=== PATIENT | female | born 1965 | race Caucasian/White ===

== ENCOUNTER → 2017-10-16 | Outpatient (CLI) | payer OTHER | LOC: M RAD 08:34 | DX: S92.344D Nondisplaced fracture of fourth metatarsal bone, right foot, subsequent encounter for fracture with routine healing (principal); X58.XXXD Exposure to other specified factors, subsequent encounter | CPT/HCPCS: 78315 ==

== ENCOUNTER → 2017-12-29 | Outpatient (CLI) | payer OTHER ==
[2017-12-29 18:22] LABS: ESTIMATED AVERAGE GLUCOSE 103 MG/DL (60-110); HEMOGLOBIN A1c 5.2 %
[2017-12-29 18:35] LABS: BASO % 0.6 % (0.0-1.0); EOS # 0.1 10^3/uL (0.0-0.50); EOS % 2.3 % (0.0-3.0); HEMATOCRIT 41.4 % (36.0-47.0); HEMOGLOBIN 13.4 g/dl (12.0-15.5); IMMATURE GRANULOCYTE % 0.4 % (0-3.0); LYMPH # 2.2 10^3/uL (1.5-4.5); LYMPH % 42.2 % (24.0-44.0); MEAN CORPUSCULAR HEMOGLOBIN 28.9 pg (27.0-33.0); MEAN CORPUSCULAR HGB CONC 32.4 g/dl (32.0-36.5); MEAN CORPUSCULAR VOLUME 89.2 fl (80.0-96.0); MONO # 0.3 10^3/uL (0.0-0.8); MONO % 6.6 % (0.0-5.0); NEUTROPHILS # 2.5 10^3/uL (1.8-7.7); NEUTROPHILS % 47.9 % (36.0-66.0); PLATELET COUNT, AUTOMATED 306 10^3/uL (150-450); RED BLOOD COUNT 4.64 10^6/uL (4.00-5.40); RED CELL DISTRIBUTION WIDTH 12.8 % (11.5-14.5); WHITE BLOOD COUNT 5.2 10^3/uL (4.0-10.0)
[2017-12-29 19:01] LABS: TOTAL 25(OH) VITAMIN D 24.2 NG/ML (30.0-100.0)
[2017-12-29 19:02] LABS: TOTAL T3 90.8 NG/DL (60.0-181.0)
[2017-12-29 19:03] LABS: ALBUMIN/GLOBULIN RATIO 1.08 (1.00-1.93); ALKALINE PHOSPHATASE 56 U/L (45-117); ALT/SGPT 22 U/L (12-78); ANION GAP 6 MEQ/L (8-16); AST/SGOT 16 U/L (7-37); BILIRUBIN,TOTAL 0.2 MG/DL (0.2-1.0); BLOOD UREA NITROGEN 10 MG/DL (7-18); CALCIUM LEVEL 8.5 MG/DL (8.5-10.1); CARBON DIOXIDE LEVEL 30 MEQ/L (21-32); CHLORIDE LEVEL 107 MEQ/L (98-107); CHOLESTEROL LEVEL 232 MG/DL (<200); CHOLESTEROL RISK RATIO 4.549 (<5); FREE T4 1.08 NG/DL (0.76-1.46); GLOMERULAR FILTRATION RATE > 60.0 (>51); GLUCOSE, FASTING 73 MG/DL (70-100); HDL CHOLESTEROL 51 MG/DL (>40); LDL CHOLESTEROL 147.6 MG/DL (<100); NON-HDL-C 181 MG/DL; POTASSIUM SERUM 4.3 MEQ/L (3.5-5.1); SODIUM LEVEL 143 MEQ/L (136-145); TOTAL PROTEIN 7.7 GM/DL (6.4-8.2); TRIGLYCERIDES LEVEL 167 MG/DL (<150)
[2017-12-31 08:06] LABS: LDL DIRECT 162 mg/dL (0-99)
== END ==
LOC: M LAB 16:29
DX: R63.5 Abnormal weight gain (principal)

== ENCOUNTER → 2018-02-08 | Outpatient (REF) | payer OTHER | LOC: M LAB REF 19:45 | DX: J02.9 Acute pharyngitis, unspecified (principal) ==

== ENCOUNTER → 2018-02-17 | Outpatient (CLI) | payer OTHER ==
[2018-02-17 15:39] LABS: BASO # 0.1 10^3/uL (0.0-0.2); BASO % 0.6 % (0.0-1.0); EOS # 0.3 10^3/uL (0.0-0.50); EOS % 2.6 % (0.0-3.0); HEMATOCRIT 41.7 % (36.0-47.0); HEMOGLOBIN 13.4 g/dl (12.0-15.5); IMMATURE GRANULOCYTE % 0.9 % (0-3.0); LYMPH # 3.9 10^3/uL (1.5-4.5); LYMPH % 39.3 % (24.0-44.0); MEAN CORPUSCULAR HEMOGLOBIN 28.9 pg (27.0-33.0); MEAN CORPUSCULAR HGB CONC 32.1 g/dl (32.0-36.5); MEAN CORPUSCULAR VOLUME 90.1 fl (80.0-96.0); MONO # 0.6 10^3/uL (0.0-0.8); MONO % 5.5 % (0.0-5.0); NEUTROPHILS # 5.1 10^3/uL (1.8-7.7); NEUTROPHILS % 51.1 % (36.0-66.0); PLATELET COUNT, AUTOMATED 460 10^3/uL (150-450); RED BLOOD COUNT 4.63 10^6/uL (4.00-5.40); RED CELL DISTRIBUTION WIDTH 13.4 % (11.5-14.5)
[2018-02-17 15:51] LABS: ALBUMIN 3.7 GM/DL (3.2-5.2); ALBUMIN/GLOBULIN RATIO 1.09 (1.00-1.93); ALKALINE PHOSPHATASE 63 U/L (45-117); ALT/SGPT 33 U/L (12-78); ANION GAP 7 MEQ/L (8-16); AST/SGOT 16 U/L (7-37); BILIRUBIN,TOTAL 0.3 MG/DL (0.2-1.0); BLOOD UREA NITROGEN 16 MG/DL (7-18); CALCIUM LEVEL 8.9 MG/DL (8.5-10.1); CARBON DIOXIDE LEVEL 32 MEQ/L (21-32); CHLORIDE LEVEL 103 MEQ/L (98-107); CREATININE FOR GFR 0.92 MG/DL (0.55-1.30); GLOMERULAR FILTRATION RATE > 60.0 (>51); GLUCOSE, FASTING 76 MG/DL (70-100); POTASSIUM SERUM 4.9 MEQ/L (3.5-5.1); SODIUM LEVEL 142 MEQ/L (136-145); TOTAL PROTEIN 7.1 GM/DL (6.4-8.2)
== END ==
LOC: M WUC 12:19
DX: R05 Cough (principal)

== ENCOUNTER 2018-07-09 15:16 | Emergency (ER) | payer OTHER ==
[2018-07-09 16:31] LABS: BASO % 0.7 % (0.0-1.0); EOS # 0.1 10^3/uL (0.0-0.50); EOS % 1.9 % (0.0-3.0); HEMATOCRIT 40.9 % (36.0-47.0); HEMOGLOBIN 13.1 g/dl (12.0-15.5); IMMATURE GRANULOCYTE % 0.2 % (0-3.0); LYMPH # 2.4 10^3/uL (1.5-4.5); LYMPH % 40.8 % (24.0-44.0); MEAN CORPUSCULAR HEMOGLOBIN 29.2 pg (27.0-33.0); MEAN CORPUSCULAR VOLUME 91.1 fl (80.0-96.0); MONO # 0.4 10^3/uL (0.0-0.8); MONO % 5.9 % (0.0-5.0); NEUTROPHILS % 50.5 % (36.0-66.0); PLATELET COUNT, AUTOMATED 329 10^3/uL (150-450); RED BLOOD COUNT 4.49 10^6/uL (4.00-5.40); RED CELL DISTRIBUTION WIDTH 12.8 % (11.5-14.5); WHITE BLOOD COUNT 5.9 10^3/uL (4.0-10.0)
[2018-07-09 16:33] LABS: KETONE, URINE AUTO RFX NEGATIVE (NEGATIVE); LEUKOCYTE ESTERASE UR AUTO RFX NEGATIVE (NEGATIVE); NITRITE, URINE AUTO RFX NEGATIVE (NEGATIVE); RBC, URINE AUTO RFX 0 /HPF (0-3); SPECIFIC GRAVITY UR AUTO RFX 1.005 (1.002-1.035); SQUAM EPITHELIAL CELL UR AURFX 0 /HPF (0-6); WBC, URINE AUTO RFX 0 /HPF (0-3)
[2018-07-09 16:52] LABS: ANION GAP 6 MEQ/L (8-16); BLOOD UREA NITROGEN 14 MG/DL (7-18); CALCIUM LEVEL 8.7 MG/DL (8.5-10.1); CARBON DIOXIDE LEVEL 28 MEQ/L (21-32); CHLORIDE LEVEL 106 MEQ/L (98-107); CREATININE FOR GFR 0.81 MG/DL (0.55-1.30); GLOMERULAR FILTRATION RATE > 60.0 (>51); GLUCOSE, FASTING 88 MG/DL (70-100); SODIUM LEVEL 140 MEQ/L (136-145)
[2018-07-09] MEDS: NS 1,000 ML IV (18:06)
[2018-07-09] MEDS: SUCRALFATE 1 GM TAB PO (18:06)
[2018-07-09] MEDS: GI COCKTAIL 50ML BTL(HYOSCYAMINE/MAALOX/LIDOCAINE VISCOUS)(1:3:1) PO (18:06)
[2018-07-09] MEDS: PANTOPRAZOLE 40MG INJ (PROTONIX) (C9113) IV (18:06)
[2018-07-09 20:33] LABS: CPK CREATINE PHOSPHOKINASE 143 U/L (26-192); MB/CK RELATIVE INDEX 1.75 (< OR =4); TROPONIN I < 0.02 NG/ML (< 0.10)
== END 2018-07-09 18:38 | disposition home or self-care (01) ==
LOC: M ED 15:16
DX: K29.00 Acute gastritis without bleeding (principal)
CPT/HCPCS: C9113

== ENCOUNTER → 2018-07-20 | Outpatient (REF) | payer OTHER ==
[2018-07-21 07:46] LABS: CONTROL LINE HPYORI INT CTR LINE PRESENT; H PYLORI QUALITATIVE IgG NEGATIVE (NEGATIVE)
== END ==
LOC: M LAB REF 16:51
DX: R10.12 Left upper quadrant pain (principal)

== ENCOUNTER 2018-08-20 12:22 | Day surgery (SDC) | payer OTHER ==
[~2018-08-20] VITALS: Ht 167.6 cm; Wt 75.7 kg
[~2018-08-20 12:22] MED LIST: CALC600T7 PO; CARA1TAB6 PO; LEVO137T2 PO; LEVO150T7 PO; LIDOCAINE 2% INJ 100 MG/5 ML SDV (FOR ANES.) As Ordered ONE; MULT1TAB10 PO; OMEP40CA2 PO; PHEN30CA2 PO; PROBCAP4 PO; PROPOFOL 200 MG/20 ML VIAL As Ordered ONE; PROT1TAB2 PO; RANI15TA PO; VITA500C10 PO
[2018-08-20] MEDS ORDERED: NS 1,000 ML IV ONE (14:00)
--- NOTE | 2018-08-20 14:54 | ROOR ---
Patient Name: Magalie Helms Procedure Date: 08/20/2018 2:40 PM Date of : 1965 Age: 53 Room: [facility] Gender: Female Note Status: Finalized Procedure: Upper GI endoscopy Indications: Abdominal pain in the left upper quadrant Providers: Toni OROPEZA MD Referring MD: HUNTER IVEY JR, MD Requesting Provider: Medicines: Monitored Anesthesia Care Complications: No immediate complications. Procedure: Pre-Anesthesia Assessment: - The heart rate, respiratory rate, oxygen saturations, blood pressure, adequacy of pulmonary ventilation, and response to care were monitored throughout the procedure. The Endoscope was introduced through the mouth, and advanced to the third part of duodenum. The upper GI endoscopy was accomplished without difficulty. The patient tolerated the procedure well. Findings: The esophagus was normal. The stomach was normal. The examined duodenum was normal. Impression: - Normal esophagus. - Normal stomach. - Normal examined duodenum. - No specimens collected. Recommendation: - Discontinue Protonix (pantoprazole). - Discontinue Carafate (sucralfate). - Use Bentyl (dicyclomine) 10- 20 mg every 4-6 hrs as needed for abdominal pain/spasm. - (the script was sent to your pharmacy on file) Toni Oropeza MD Toni OROPEZA MD 08/20/2018 2:54:37 PM This report has been signed electronically. Number of Addenda: 0 Note Initiated On: 08/20/2018 2:40 PM Estimated Blood Loss: Estimated blood loss: none.
[2018-08-20 15:37] VITALS: BP 138/80
== END 2018-08-20 15:42 | disposition home or self-care (01) ==
LOC: M OPP 12:22
PROVIDERS: ATTEND Internal Medicine Gastroenterology
DX: R10.12 Left upper quadrant pain (principal)

== ENCOUNTER → 2019-04-28 | Outpatient (REF) | payer OTHER ==
[~2019-04-28] MED LIST changes: -LIDOCAINE 2% INJ 100 MG/5 ML SDV (FOR ANES.) As Ordered ONE; -PROPOFOL 200 MG/20 ML VIAL As Ordered ONE
[2019-04-28 12:35] LABS: BLOOD UREA NITROGEN 19 MG/DL (7-18); CREATININE FOR GFR 0.76 MG/DL (0.55-1.30); GLOMERULAR FILTRATION RATE > 60.0 (>51)
== END ==
LOC: M LABDRAW1 09:22
PROVIDERS: ATTEND Orthopaedic Surgery Sports Medicine
DX: M25.512 Pain in left shoulder (principal)

== ENCOUNTER → 2019-05-07 | Outpatient (CLI) | payer OTHER ==
[~2019-05-07] MED LIST changes: +PROHANCE 279.3MG/ML 15ML VIAL (A9576) As Ordered ONE
--- NOTE | 2019-05-11 09:28 | REP ---
MRI RIGHT SHOULDER WITH AND WITHOUT CONTRAST: TECHNIQUE: Axial T2 fat sat, gradient echo, sagittal oblique T2 fat sat, coronal oblique T1, T2 fat sat. Axial T1 fat sat, post IV gadolinium axial and coronal oblique T1 fat sat with the intravenous administration of 15.4 mL ProHance. There is mild ill-defined high signal in the supraspinatus tendon compatible with mild tendinopathy/tendonitis. No rotator cuff tendon tear is seen. There are mild hypertrophic degenerative changes of the acromioclavicular joint with mild fluid in the joint. Acromion is type II. Biceps tendon is within the bicipital groove with no tendosynovitis. There is no Hill-Sachs deformity. The deltoid muscle demonstrates no abnormal signal. There is no mild fraying of the biceps labral complex. There is an anterior labral tear. No paralabral cyst is seen. There are mild subchondral cystic changes in the humeral head. There is mild to moderate chondromalacia at the glenohumeral joint with some minor subchondral marrow edema in the inferior glenoid. There is a small amount of fluid in the subacromial subdeltoid bursae which may indicate an element of bursitis. No enhancing mass is seen. IMPRESSION: Mild supraspinatus tendinopathy/tendonitis without rotator cuff tendon tear. Mild hypertrophic changes acromioclavicular joint. Anterior labral tear. Mild fraying of the biceps labral complex. 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 A small amount of fluid in the subacromial subdeltoid bursae may indicate an element of bursitis. Electronically Signed by Kenny Turk MD 05/11/2019 11:39 A
--- NOTE | 2019-05-11 09:32 | REP ---
MRI LEFT SHOULDER WITH AND WITHOUT CONTRAST: TECHNIQUE: Axial T2 fat sat, gradient echo, sagittal oblique T2 fat sat, coronal oblique T1, T2 fat sat. Axial T1 fat sat, post-IV gadolinium axial, coronal oblique T1 fat sat with the intravenous administration of 15.4 mL ProHance. Supraspinatus tendon demonstrates mild ill-defined high signal compatible with tendinopathy/tendinitis. There is no rotator cuff tendon tear. There are mild hypertrophic degenerative changes of the acromioclavicular joint with tiny amount of fluid in the joint. The acromion is type 2. Biceps tendon is within the bicipital groove with a small amount of surrounding fluid. There is no Hill-Sachs deformity. Deltoid muscle demonstrates no abnormal signal. There is mild fraying of the biceps labral complex. There is a tear of the inferior aspect of the anterior labrum. Mild subchondral cystic changes are seen in the superolateral humeral head. There is a tiny amount of subacromial fluid. There is mild chondromalacia of the glenohumeral joint. I see no enhancing mass. IMPRESSION: Mild supraspinatus tendinopathy/tendinitis with no rotator cuff tendon tear. Mild hypertrophic degenerative changes of the acromioclavicular joint. Mild fraying of the biceps labral complex. There appears to be a tear of the inferior aspect of the anterior labrum. Electronically Signed by Kenny Turk MD 05/11/2019 11:39 A
== END ==
LOC: M RAD 15:12
PROVIDERS: ATTEND Orthopaedic Surgery Sports Medicine
DX: M94.211 Chondromalacia, right shoulder (principal); M19.012 Primary osteoarthritis, left shoulder
CPT/HCPCS: 73223; A9576

== ENCOUNTER → 2019-08-30 | Outpatient (CLI) | payer OTHER ==
[~2019-08-30] MED LIST changes: -OMEP40CA2 PO; +OMEP40CA97 PO; -PROHANCE 279.3MG/ML 15ML VIAL (A9576) As Ordered ONE
[2019-08-30 14:47] LABS: FREE T3 2.5 PG/ML (2.2-4.0); FREE T4 1.24 NG/DL (0.76-1.46); THYROID STIMULATING HORMONE 1.23 uIU/ML (0.358-3.740)
== END ==
LOC: M WUC 09:14
PROVIDERS: ATTEND Internal Medicine
DX: E03.8 Other specified hypothyroidism (principal); E04.1 Nontoxic single thyroid nodule

== ENCOUNTER → 2019-11-17 | Outpatient (REF) | payer OTHER | LOC: M SFHCWAGY 10:22 | PROVIDERS: ATTEND Nurse Practitioner Women's Health | DX: Z12.4 Encounter for screening for malignant neoplasm of cervix (principal) | CPT/HCPCS: 87624; G0123 ==

== ENCOUNTER → 2020-01-21 | Outpatient (CLI) | payer OTHER ==
[2020-01-21 13:37] LABS: FREE T4 0.89 NG/DL (0.76-1.46); THYROID STIMULATING HORMONE 30.7 uIU/ML (0.358-3.740)
== END ==
LOC: M WUC 09:59
PROVIDERS: ATTEND Internal Medicine
DX: E03.8 Other specified hypothyroidism (principal); E04.1 Nontoxic single thyroid nodule

== ENCOUNTER → 2020-01-24 | Outpatient (CLI) | payer OTHER ==
[2020-01-24 14:58] LABS: FREE T4 0.79 NG/DL (0.76-1.46); THYROID STIMULATING HORMONE 28.8 uIU/ML (0.358-3.740)
== END ==
LOC: M LAB 13:44
PROVIDERS: ATTEND Internal Medicine
DX: E03.8 Other specified hypothyroidism (principal)

== ENCOUNTER → 2020-02-21 | Outpatient (CLI) | payer OTHER ==
[2020-02-21 17:46] LABS: FREE T4 1.41 NG/DL (0.76-1.46); THYROID STIMULATING HORMONE 0.523 uIU/ML (0.358-3.740)
== END ==
LOC: M WUC 11:00
PROVIDERS: ATTEND Internal Medicine
DX: E03.8 Other specified hypothyroidism (principal)

== ENCOUNTER → 2020-03-27 | Outpatient (CLI) | payer OTHER ==
[~2020-03-27] MED LIST changes: +CALC-212 PO; -CALC600T7 PO
[2020-03-27 10:03] LABS: BASO % 0.7 % (0.0-1.0); EOS # 0.1 10^3/uL (0.0-0.5); EOS % 2.6 % (0.0-3.0); HEMATOCRIT 42.6 % (36.0-47.0); HEMOGLOBIN 13.6 g/dl (12.0-15.5); LYMPH # 1.7 10^3/uL (1.5-5.0); LYMPH % 35.9 % (24.0-44.0); MEAN CORPUSCULAR HGB CONC 31.9 g/dl (32.0-36.5); MONO # 0.3 10^3/uL (0.0-0.8); MONO % 6.1 % (0.0-5.0); NEUTROPHILS # 2.5 10^3/uL (1.5-8.5); NEUTROPHILS % 54.5 % (36.0-66.0); PLATELET COUNT, AUTOMATED 318 10^3/uL (150-450); RED BLOOD COUNT 4.53 10^6/uL (4.00-5.40); WHITE BLOOD COUNT 4.6 10^3/uL (4.0-10.0)
[2020-03-27 10:43] LABS: ALBUMIN 3.7 GM/DL (3.2-5.2); ALT/SGPT 17 U/L (12-78); BILIRUBIN,TOTAL 0.5 MG/DL (0.2-1.0); BLOOD UREA NITROGEN 11 MG/DL (7-18); CALCIUM LEVEL 8.6 MG/DL (8.5-10.1); CARBON DIOXIDE LEVEL 28 MEQ/L (21-32); CHLORIDE LEVEL 105 MEQ/L (98-107); CREATININE FOR GFR 0.86 MG/DL (0.55-1.30); FREE T4 1.23 NG/DL (0.76-1.46); GLOMERULAR FILTRATION RATE > 60.0 (>51); GLUCOSE, FASTING 86 MG/DL (70-100); LIPASE 131 U/L (73-393); POTASSIUM SERUM 4.4 MEQ/L (3.5-5.1); SODIUM LEVEL 140 MEQ/L (136-145)
== END ==
LOC: M LAB 09:12
PROVIDERS: ATTEND Physician Assistant
DX: R19.7 Diarrhea, unspecified (principal)

== ENCOUNTER → 2020-12-02 | Outpatient (CLI) | payer OTHER ==
[2020-12-02 15:09] LABS: FREE T4 1.14 NG/DL (0.76-1.46); THYROID STIMULATING HORMONE 2.68 uIU/ML (0.358-3.740)
[2020-12-04 12:02] LABS: TOTAL 25(OH) VITAMIN D 27.7 NG/ML (30.0-100.0)
== END ==
LOC: M LAB 14:20
PROVIDERS: ATTEND Internal Medicine
DX: E03.8 Other specified hypothyroidism (principal); E04.1 Nontoxic single thyroid nodule; E55.9 Vitamin D deficiency, unspecified

== ENCOUNTER → 2021-08-04 | Outpatient (CLI) | payer OTHER ==
[~2021-08-04] MED LIST changes: +OMEP40CA4 PO; -OMEP40CA97 PO
[2021-08-04 14:22] LABS: FREE T3 2.4 PG/ML (2.2-4.0); FREE T4 1.16 NG/DL (0.76-1.46); THYROID STIMULATING HORMONE 1.28 uIU/ML (0.358-3.740)
== END ==
LOC: M LAB 13:12
PROVIDERS: ATTEND Internal Medicine
DX: E03.8 Other specified hypothyroidism (principal); E55.9 Vitamin D deficiency, unspecified

== ENCOUNTER → 2021-08-21 | Outpatient (CLI) | payer OTHER ==
[2021-08-21 17:33] LABS: ESTRADIOL 70.7 PG/ML; FOLLICLE STIMULATING HORMONE 16.5 mIU/mL; LUTEINIZING HORMONE 8.5 mIU/mL; PROGESTERONE 8.44 NG/ML
[2021-08-23 18:08] LABS: TESTOSTERONE FREE (DIRECT) 2.2 pg/mL (0.0-4.2)
== END ==
LOC: M LAB 15:43
PROVIDERS: ATTEND Obstetrics & Gynecology
DX: N95.1 Menopausal and female climacteric states (principal); E34.9 Endocrine disorder, unspecified; F52.0 Hypoactive sexual desire disorder

== ENCOUNTER → 2022-01-04 | Outpatient (CLI) | payer OTHER ==
[~2022-01-04] MED LIST changes: -PHEN30CA2 PO; +PHEN30CA21 PO
[2022-01-04 10:58] LABS: FREE T3 2.3 PG/ML (2.2-4.0); FREE T4 1.04 NG/DL (0.76-1.46); THYROID STIMULATING HORMONE 1.28 uIU/ML (0.358-3.740)
[2022-01-04 11:00] LABS: TOTAL 25(OH) VITAMIN D 25.2 NG/ML (30.0-100.0)
== END ==
LOC: M LAB 09:27
PROVIDERS: ATTEND Internal Medicine
DX: E03.8 Other specified hypothyroidism (principal); E55.9 Vitamin D deficiency, unspecified

== ENCOUNTER → 2022-01-11 | Outpatient (REF) | payer OTHER | LOC: M PLALAB 16:12 | PROVIDERS: ATTEND Obstetrics & Gynecology | DX: Z12.4 Encounter for screening for malignant neoplasm of cervix (principal) | CPT/HCPCS: 87624; G0123 ==

== ENCOUNTER → 2022-05-03 | Outpatient (REF) | payer OTHER ==
[2022-05-03 17:32] LABS: APPEARANCE, URINE MANUAL CLEAR (CLEAR); COLOR, URINE MANUAL COLORLESS (YELLOW)
[2022-05-03 17:33] LABS: BILIRUBIN, URINE MANUAL NEGATIVE (NEGATIVE); BLOOD URINE MANUAL NEGATIVE (NEGATIVE); GLUCOSE, URINE (UA) MANUAL NEGATIVE (NEGATIVE); KETONE, URINE MANUAL NEGATIVE (NEGATIVE); LEUKOCYTE ESTERASE, URINE MAN NEGATIVE (NEGATIVE); NITRITE, URINE MANUAL NEGATIVE (NEGATIVE); PROTEIN, URINE MANUAL NEGATIVE (NEGATIVE); UROBILINOGEN, URINE MANUAL NORMAL (NORMAL)
[2022-05-03 17:58] LABS: BACTERIA, URINE NONE SEEN; HYALINE CAST, URINE NONE SEEN /lpf (0-1); RBC, URINE NONE SEEN /hpf (0-3); SQUAMOUS EPITHELIAL CELL URINE SMALL AMOUNT /hpf (SMALL AMT); WBC, URINE NONE SEEN /hpf (0-3)
== END ==
LOC: M LAB REF 16:22
PROVIDERS: ATTEND Internal Medicine
DX: R31.9 Hematuria, unspecified (principal)

== ENCOUNTER → 2022-05-20 | Outpatient (CLI) | payer OTHER | LOC: M WHC 12:44 | PROVIDERS: ATTEND Internal Medicine | DX: R10.30 Lower abdominal pain, unspecified (principal) ==

== ENCOUNTER → 2022-05-31 | Outpatient (CLI) | payer OTHER | LOC: M WUC 15:23 | PROVIDERS: ATTEND Internal Medicine | DX: M51.37 Other intervertebral disc degeneration, lumbosacral region (principal) ==

== ENCOUNTER → 2022-09-30 | Outpatient (CLI) | payer OTHER ==
[2022-09-30 20:50] LABS: HEMATOCRIT 42.2 % (36.0-47.0)
[2022-09-30 20:51] LABS: BASO % 0.6 % (0.0-1.0); EOS # 0.1 10^3/uL (0.0-0.5); EOS % 1.5 % (0.0-3.0); HEMATOCRIT 42.8 % (36.0-47.0); HEMOGLOBIN 13.3 g/dl (12.0-15.5); LYMPH % 38.7 % (24.0-44.0); MEAN CORPUSCULAR HEMOGLOBIN 29.2 pg (27.0-33.0); MEAN CORPUSCULAR HGB CONC 31.1 g/dl (32.0-36.5); MEAN CORPUSCULAR VOLUME 94.1 fl (80.0-96.0); MONO # 0.3 10^3/uL (0.0-0.8); MONO % 6.1 % (2.0-8.0); NEUTROPHILS # 2.8 10^3/uL (1.5-8.5); NEUTROPHILS % 52.9 % (36.0-66.0); PLATELET COUNT, AUTOMATED 286 10^3/uL (150-450); RED BLOOD COUNT 4.55 10^6/uL (4.00-5.40); WHITE BLOOD COUNT 5.3 10^3/uL (4.0-10.0)
[2022-09-30 21:03] LABS: ERYTHROCYTE SEDIMENTATION RATE 13 mm/hr (0-30)
[2022-09-30 21:19] LABS: IRON (FE) 52 UG/DL (50-170); PERCENT SATURATION 16.5 % (13.2-45.0); TOTAL 25(OH) VITAMIN D 25.5 NG/ML (20.0-100.0); TOTAL IRON BINDING CAPACITY 316 UG/DL (250-425)
[2022-09-30 21:20] LABS: FREE T3 3.2 PG/ML (2.3-4.2); FREE T4 1.57 NG/DL (0.89-1.76)
[2022-09-30 21:21] LABS: PROGESTERONE 0.21 NG/ML; VITAMIN B12 LEVEL 528 PG/ML (211-911)
[2022-09-30 21:41] LABS: C REACTIVE PROTEIN QUANTITATIV < 0.40 MG/DL (<1.0)
[2022-09-30 21:43] LABS: IMMUNOGLOBULIN A 230.2 MG/DL (40-350); IMMUNOGLOBULIN G 1146 MG/DL (650-1600)
[2022-09-30 21:53] LABS: THYROGLOBULIN ANTIBODY > 500.0 U/ML (<60.0); THYROID PEROXIDASE ANTIBODY > 1300.0 U/ML (<60.0)
== END ==
LOC: M WUC 15:31
PROVIDERS: ATTEND Nurse Practitioner Pediatrics
DX: F41.9 Anxiety disorder, unspecified (principal); R53.83 Other fatigue

== ENCOUNTER → 2022-11-16 | Outpatient (CLI) | payer OTHER ==
[2022-11-16 10:22] LABS: IMMUNOGLOBULIN A 213.5 MG/DL (40-350); IMMUNOGLOBULIN G 1071 MG/DL (650-1600)
[2022-11-16 10:29] LABS: CORTISOL AM 9.5 UG/DL (4.3-22.4)
[2022-11-16 10:33] LABS: FREE T3 3.4 PG/ML (2.3-4.2)
[2022-11-16 10:34] LABS: PROGESTERONE 0.43 NG/ML; THYROID STIMULATING HORMONE 2.288 uIU/ML (0.55-4.78)
[2022-11-16 10:35] LABS: FREE T4 1.54 NG/DL (0.89-1.76)
[2022-11-16 10:36] LABS: TOTAL 25(OH) VITAMIN D 35.4 NG/ML (20.0-100.0)
[2022-11-16 10:37] LABS: THYROGLOBULIN ANTIBODY > 500.0 U/ML (<60.0); THYROID PEROXIDASE ANTIBODY > 1300.0 U/ML (<60.0)
== END ==
LOC: M LAB 09:03
DX: R53.83 Other fatigue (principal); F41.9 Anxiety disorder, unspecified; E06.3 Autoimmune thyroiditis

== ENCOUNTER → 2022-12-07 | Outpatient (REF) | payer OTHER | LOC: M LAB REF 06:45 | PROVIDERS: ATTEND Internal Medicine Gastroenterology | DX: R19.7 Diarrhea, unspecified (principal) ==

== ENCOUNTER → 2022-12-13 | Outpatient (CLI) | payer OTHER ==
[2022-12-13 16:18] LABS: BASO % 0.8 % (0.0-1.0); EOS # 0.1 10^3/uL (0.0-0.5); EOS % 2.2 % (0.0-3.0); HEMATOCRIT 43.3 % (36.0-47.0); HEMOGLOBIN 13.6 g/dl (12.0-15.5); LYMPH # 1.8 10^3/uL (1.5-5.0); LYMPH % 35.5 % (24.0-44.0); MEAN CORPUSCULAR HEMOGLOBIN 29.8 pg (27.0-33.0); MEAN CORPUSCULAR HGB CONC 31.4 g/dl (32.0-36.5); MONO # 0.4 10^3/uL (0.0-0.8); MONO % 8.2 % (2.0-8.0); NEUTROPHILS # 2.7 10^3/uL (1.5-8.5); NEUTROPHILS % 53.1 % (36.0-66.0); PLATELET COUNT, AUTOMATED 312 10^3/uL (150-450); RED BLOOD COUNT 4.56 10^6/uL (4.00-5.40); WHITE BLOOD COUNT 5.1 10^3/uL (4.0-10.0)
[2022-12-13 16:50] LABS: LIPASE 42 U/L (12-53)
[2022-12-13 16:51] LABS: AMYLASE 61 U/L (30-118)
[2022-12-13 16:52] LABS: ALKALINE PHOSPHATASE 41 U/L (46-116); ALT/SGPT 20 U/L (7.0-40); AST/SGOT 16 U/L (<34); BILIRUBIN,TOTAL 0.5 MG/DL (0.3-1.2); BLOOD UREA NITROGEN 16 MG/DL (9-23); CALCIUM LEVEL 8.5 MG/DL (8.5-10.1); CARBON DIOXIDE LEVEL 30 MMOL/L (20-31); CHLORIDE LEVEL 107 MMOL/L (98-107); CREATININE FOR GFR 0.84 MG/DL (0.55-1.30); GLOMERULAR FILTRATION RATE > 60.0 (>51); GLUCOSE, FASTING 80 MG/DL (60-100); POTASSIUM SERUM 4.5 MMOL/L (3.5-5.1); SODIUM LEVEL 140 MMOL/L (136-145); TOTAL PROTEIN 6.8 G/DL (5.7-8.2)
== END ==
LOC: M WUC 10:11
PROVIDERS: ATTEND Physician Assistant Medical
DX: R10.84 Generalized abdominal pain (principal)

== ENCOUNTER → 2023-01-15 | Outpatient (CLI) | payer OTHER ==
[~2023-01-15] MED LIST changes: +GASTROGRAFIN SOLUTION 30ML As Ordered ONE; +ISOVUE-370 76% 100ML VIAL As Ordered ONE; +PROBCAP14 PO; +SYNT175T2 PO; +VITMTA PO
== END ==
LOC: M RAD 13:03
PROVIDERS: ATTEND Physician Assistant Medical
DX: K76.0 Fatty (change of) liver, not elsewhere classified (principal); K31.89 Other diseases of stomach and duodenum
CPT/HCPCS: 74178; Q9963; Q9967

== ENCOUNTER 2023-01-17 11:46 | Day surgery (SDC) | payer OTHER ==
[~2023-01-17] VITALS: Ht 167.6 cm; Wt 83.9 kg
[~2023-01-17 11:46] MED LIST changes: -GASTROGRAFIN SOLUTION 30ML As Ordered ONE; -ISOVUE-370 76% 100ML VIAL As Ordered ONE; +NS 1,000 ML IV ONE
[2023-01-17] MEDS ORDERED: propofoL 500 MG/50 ML VIAL As Ordered ONE (14:52)
[2023-01-17] MEDS ORDERED: LIDOCAINE 2% 100MG/5ML SDV (FOR ANES.) As Ordered ONE (14:54)
[2023-01-17] MEDS ORDERED: fentaNYL 100 MCG/2 ML INJECTION As Ordered ONE (14:55)
[2023-01-17] MEDS ORDERED: ONDANSETRON 4MG 2ML VIAL As Ordered ONE (15:01)
[2023-01-17 15:50] VITALS: BP 122/64
== END 2023-01-17 16:00 | disposition home or self-care (01) ==
LOC: M OPP 11:46
PROVIDERS: ATTEND Internal Medicine Gastroenterology
DX: K63.5 Polyp of colon (principal); K57.30 Diverticulosis of large intestine without perforation or abscess without bleeding; K64.8 Other hemorrhoids; K29.70 Gastritis, unspecified, without bleeding; Z79.890 Hormone replacement therapy; Z87.891 Personal history of nicotine dependence
CPT/HCPCS: 43239; 45380; 88305; J2405; J3010

== ENCOUNTER → 2023-01-31 | Outpatient (CLI) | payer OTHER ==
[~2023-01-31] MED LIST changes: -NS 1,000 ML IV ONE
[2023-01-31 10:21] LABS: CHOLESTEROL LEVEL 211 MG/DL (<200); CHOLESTEROL RISK RATIO 4.32 (<5); HDL CHOLESTEROL 48.8 MG/DL (>40); LDL CHOLESTEROL 146.4 MG/DL (<100); NON-HDL-C 162.2 MG/DL; TRIGLYCERIDES LEVEL 79 MG/DL (<150)
[2023-01-31 10:23] LABS: C REACTIVE PROTEIN QUANTITATIV < 0.40 MG/DL (<1.0)
[2023-01-31 10:25] LABS: FREE T3 3.8 PG/ML (2.3-4.2); FREE T4 1.65 NG/DL (0.89-1.76); THYROID STIMULATING HORMONE 0.114 uIU/ML (0.55-4.78)
[2023-01-31 10:26] LABS: PROGESTERONE 6.06 NG/ML; TOTAL 25(OH) VITAMIN D 29.2 NG/ML (20.0-100.0)
[2023-01-31 10:33] LABS: THYROID PEROXIDASE ANTIBODY 1135 U/ML (<60.0)
[2023-01-31 10:43] LABS: THYROGLOBULIN ANTIBODY > 500.0 U/ML (<60.0)
[2023-02-07 21:07] LABS: ESTROGENS TOTAL 59 pg/mL (40-244); TESTOSTERONE FREE (DIRECT) 3.7 pg/mL (0.0-4.2)
== END ==
LOC: M LAB 09:12
PROVIDERS: ATTEND Nurse Practitioner Pediatrics
DX: E06.3 Autoimmune thyroiditis (principal); R53.83 Other fatigue; F41.9 Anxiety disorder, unspecified

== ENCOUNTER → 2023-05-01 | Outpatient (CLI) | payer OTHER ==
[~2023-05-01] MED LIST changes: +ISOVUE-300 61% 100ML VIAL As Ordered ONE; +LIDOCAINE 1% MDV 20ML VIAL As Ordered ONE; +PROHANCE 279.3MG/ML 5ML VIAL As Ordered ONE
== END ==
LOC: M RAD 12:45
PROVIDERS: ATTEND Physician Assistant
DX: M25.551 Pain in right hip (principal); S73.191A Other sprain of right hip, initial encounter; X58.XXXA Exposure to other specified factors, initial encounter; Y92.9 Unspecified place or not applicable
CPT/HCPCS: 27093; 73723; 77002; A9576; Q9967

== ENCOUNTER → 2023-07-18 | Outpatient (CLI) | payer OTHER ==
[~2023-07-18] MED LIST changes: -ISOVUE-300 61% 100ML VIAL As Ordered ONE; -LIDOCAINE 1% MDV 20ML VIAL As Ordered ONE; -PROHANCE 279.3MG/ML 5ML VIAL As Ordered ONE
[2023-07-18 10:26] LABS: CHOLESTEROL RISK RATIO 4.06 (<5); FREE T3 3.7 PG/ML (2.3-4.2); FREE T4 1.72 NG/DL (0.89-1.76); HDL CHOLESTEROL 50.9 MG/DL (>40); LDL CHOLESTEROL 144.5 MG/DL (<100); NON-HDL-C 156.1 MG/DL; THYROID STIMULATING HORMONE 0.079 uIU/ML (0.55-4.78)
== END ==
LOC: M LAB 08:59
PROVIDERS: ATTEND Nurse Practitioner Pediatrics
DX: E06.3 Autoimmune thyroiditis (principal); R53.83 Other fatigue; F41.9 Anxiety disorder, unspecified

== ENCOUNTER → 2023-10-17 | Outpatient (CLI) | payer OTHER | LOC: M WHC 08:47 | PROVIDERS: ATTEND Physician Assistant Medical | DX: R16.0 Hepatomegaly, not elsewhere classified (principal); K76.0 Fatty (change of) liver, not elsewhere classified ==

== ENCOUNTER → 2024-01-19 | Outpatient (CLI) | payer OTHER ==
[2024-01-19 16:33] LABS: FREE T3 4.1 PG/ML (2.3-4.2); THYROID STIMULATING HORMONE 0.023 uIU/ML (0.55-4.78)
[2024-01-19 16:34] LABS: FREE T4 1.91 NG/DL (0.89-1.76)
== END ==
LOC: M LAB 15:34
PROVIDERS: ATTEND Internal Medicine
DX: E03.8 Other specified hypothyroidism (principal); E06.3 Autoimmune thyroiditis

== ENCOUNTER 2024-03-30 17:51 | Emergency (ER) | payer OTHER ==
[~2024-03-30] VITALS: Ht 167.6 cm; Wt 75.5 kg
[2024-03-30 17:51] VITALS: TEMP 97.9; O2SAT 99
[2024-03-30] MEDS ORDERED: CLON0.5T2 (18:03)
[2024-03-30] MEDS ORDERED: SERT50TA29 (18:03)
[2024-03-30] MEDS ORDERED: SEMA1.7P (18:03)
[2024-03-30 18:29] LABS: BASO % 0.5 % (0.0-1.0); EOS # 0.1 10^3/uL (0.0-0.5); EOS % 1.6 % (0.0-3.0); HEMATOCRIT 42.9 % (36.0-47.0); HEMOGLOBIN 14.1 g/dl (12.0-15.5); LYMPH # 1.8 10^3/uL (1.5-5.0); LYMPH % 32.9 % (24.0-44.0); MEAN CORPUSCULAR HEMOGLOBIN 29.4 pg (27.0-33.0); MEAN CORPUSCULAR HGB CONC 32.9 g/dl (32.0-36.5); MEAN CORPUSCULAR VOLUME 89.6 fl (80.0-96.0); MONO # 0.4 10^3/uL (0.0-0.8); NEUTROPHILS # 3.2 10^3/uL (1.5-8.5); NEUTROPHILS % 57.8 % (36.0-66.0); PLATELET COUNT, AUTOMATED 344 10^3/uL (150-450); RED BLOOD COUNT 4.79 10^6/uL (4.00-5.40); WHITE BLOOD COUNT 5.6 10^3/uL (4.0-10.0)
[2024-03-30] MEDS ORDERED: ISOVUE-370 76% 100ML VIAL As Ordered ONE (18:39)
[2024-03-30] MEDS: ONDANSETRON 4MG 2ML VIAL IV ONE (18:57)
[2024-03-30] MEDS: KETOROLAC 30 MG/ML 1ML VIAL IV ONE (18:57)
[2024-03-30] MEDS: NS 1,000 ML IV ONE (18:57)
[2024-03-30 19:01] LABS: LIPASE 72 U/L (12-53)
[2024-03-30 19:03] LABS: ALKALINE PHOSPHATASE 53 U/L (46-116); ALT/SGPT 25 U/L (7.0-40); AST/SGOT 30 U/L (<34); BILIRUBIN,DIRECT < 0.1 MG/DL (<0.4); BILIRUBIN,TOTAL 0.4 MG/DL (0.3-1.2); TOTAL PROTEIN 7.2 G/DL (5.7-8.2)
[2024-03-30 20:14] VITALS: BP 145/76
== END 2024-03-30 20:14 | disposition home or self-care (01) ==
LOC: M ED 17:51
DX: R10.12 Left upper quadrant pain (principal); E06.3 Autoimmune thyroiditis; F41.9 Anxiety disorder, unspecified; Z79.4 Long term (current) use of insulin; Z79.899 Other long term (current) drug therapy
CPT/HCPCS: 74177; 80047; 80076; 81001; 83605; 83690; 85025; 96374; 99284; J1885; J2405; Q9967

== ENCOUNTER → 2024-04-02 | Outpatient (CLI) | payer OTHER ==
[~2024-04-02] MED LIST changes: +CLON0.5T2; +SEMA1.7P; +SERT50TA29
[2024-04-02 12:06] LABS: THYROID STIMULATING HORMONE 0.057 uIU/ML (0.55-4.78)
[2024-04-02 12:07] LABS: FREE T4 1.68 NG/DL (0.89-1.76)
== END ==
LOC: M LAB 11:06
PROVIDERS: ATTEND Internal Medicine
DX: E03.8 Other specified hypothyroidism (principal); E06.3 Autoimmune thyroiditis

== ENCOUNTER → 2024-04-28 | Outpatient (CLI) | payer OTHER ==
[~2024-04-28] MED LIST changes: +E-Z-GAS II EFFERVESCENT PACKET (SODIUM BICARB./CITRIC ACID/SIMETHICONE) As Ordered ONE; +E-Z-HD 98% w/w 340GM SUSP BTL As Ordered ONE; +E-Z-PAQUE 96% w/w SUSP 176GM BTL As Ordered ONE
== END ==
LOC: M RAD 09:35
PROVIDERS: ATTEND Physician Assistant Medical
DX: R10.12 Left upper quadrant pain (principal); K29.70 Gastritis, unspecified, without bleeding

== ENCOUNTER → 2024-07-03 | Outpatient (CLI) | payer OTHER ==
[~2024-07-03] MED LIST changes: -E-Z-GAS II EFFERVESCENT PACKET (SODIUM BICARB./CITRIC ACID/SIMETHICONE) As Ordered ONE; -E-Z-HD 98% w/w 340GM SUSP BTL As Ordered ONE; -E-Z-PAQUE 96% w/w SUSP 176GM BTL As Ordered ONE
[2024-07-03 11:18] LABS: C REACTIVE PROTEIN QUANTITATIV < 0.40 MG/DL (<1.0); THYROID STIMULATING HORMONE 2.213 uIU/ML (0.55-4.78)
[2024-07-03 11:20] LABS: ALBUMIN 3.8 G/DL (3.2-5.2); ALKALINE PHOSPHATASE 53 U/L (35-104); ALT/SGPT 22 U/L (7.0-40); AST/SGOT 12 U/L (<34); BILIRUBIN,TOTAL 0.7 MG/DL (0.3-1.2); BLOOD UREA NITROGEN 21 MG/DL (9-23); CALCIUM LEVEL 9.5 MG/DL (8.5-10.1); CARBON DIOXIDE LEVEL 29 MMOL/L (20-31); CHLORIDE LEVEL 109 MMOL/L (98-107); CHOLESTEROL LEVEL 240 MG/DL (<200); CHOLESTEROL RISK RATIO 4.83 (<5); CREATININE FOR GFR 0.88 MG/DL (0.55-1.30); FREE T4 1.42 NG/DL (0.89-1.76); GLOMERULAR FILTRATION RATE > 60.0 (>51); GLUCOSE, FASTING 82 MG/DL (60-100); HDL CHOLESTEROL 49.6 MG/DL (>40); LDL CHOLESTEROL 176.4 MG/DL (<100); NON-HDL-C 190.4 MG/DL; POTASSIUM SERUM 4.4 MMOL/L (3.5-5.1); RHEUMATOID FACTOR QUANT 4.5 IU/ML (<14); SODIUM LEVEL 141 MMOL/L (136-145); TOTAL PROTEIN 6.9 G/DL (5.7-8.2); TRIGLYCERIDES LEVEL 70 MG/DL (<150)
[2024-07-03 11:23] LABS: FREE T3 3.1 PG/ML (2.3-4.2)
[2024-07-03 11:33] LABS: THYROID PEROXIDASE ANTIBODY > 1300.0 U/ML (<60.0)
[2024-07-06 12:09] LABS: EBV VIRAL CAPSID AG IGM < 36.00 U/mL (<36.00)
[2024-07-06 13:23] LABS: ANA SCREEN, IFA NEGATIVE (NEGATIVE)
== END ==
LOC: M LAB 08:06
PROVIDERS: ATTEND Nurse Practitioner Pediatrics
DX: E06.3 Autoimmune thyroiditis (principal); M25.50 Pain in unspecified joint; R53.83 Other fatigue; F41.9 Anxiety disorder, unspecified

== ENCOUNTER → 2024-07-06 | Outpatient (REF) | payer OTHER | LOC: M SFHCWAGY 10:34 | PROVIDERS: ATTEND Nurse Practitioner Family | DX: Z12.4 Encounter for screening for malignant neoplasm of cervix (principal); Z11.51 Encounter for screening for human papillomavirus (HPV) ==

== ENCOUNTER → 2024-12-25 | Outpatient (CLI) | payer OTHER ==
[2024-12-25 10:03] LABS: BASO % 1.1 % (0.0-1.0); EOS # 0.1 10^3/uL (0.0-0.5); EOS % 2.2 % (0.0-3.0); HEMATOCRIT 41.6 % (36.0-47.0); HEMOGLOBIN 13.4 g/dl (12.0-15.5); LYMPH # 1.6 10^3/uL (1.5-5.0); LYMPH % 44.9 % (24.0-44.0); MEAN CORPUSCULAR HGB CONC 32.2 g/dl (32.0-36.5); MONO # 0.2 10^3/uL (0.0-0.8); MONO % 6.4 % (2.0-8.0); NEUTROPHILS # 1.6 10^3/uL (1.5-8.5); NEUTROPHILS % 45.1 % (36.0-66.0); PLATELET COUNT, AUTOMATED 314 10^3/uL (150-450); RED BLOOD COUNT 4.62 10^6/uL (4.00-5.40); WHITE BLOOD COUNT 3.6 10^3/uL (4.0-10.0)
[2024-12-25 10:11] LABS: ERYTHROCYTE SEDIMENTATION RATE 15 mm/hr (0-30)
[2024-12-25 10:34] LABS: ALKALINE PHOSPHATASE 45 U/L (35-104); ALT/SGPT 18 U/L (7.0-40); AST/SGOT 12 U/L (<34); BILIRUBIN,TOTAL 0.8 MG/DL (0.3-1.2); BLOOD UREA NITROGEN 12 MG/DL (9-23); C REACTIVE PROTEIN QUANTITATIV < 0.50 MG/DL (<1.0); CALCIUM LEVEL 9.3 MG/DL (8.5-10.1); CARBON DIOXIDE LEVEL 30 MMOL/L (20-31); CHLORIDE LEVEL 104 MMOL/L (98-107); CREATININE FOR GFR 0.83 MG/DL (0.55-1.30); GLOMERULAR FILTRATION RATE 81.2 (>51); GLUCOSE, FASTING 79 MG/DL (60-100); IRON (FE) 92 UG/DL (50-170); PERCENT SATURATION 34.1 % (13.2-45.0); POTASSIUM SERUM 4.3 MMOL/L (3.5-5.1); RHEUMATOID FACTOR QUANT < 3.5 IU/ML (<14); SODIUM LEVEL 140 MMOL/L (136-145); TOTAL IRON BINDING CAPACITY 270 UG/DL (250-425); TOTAL PROTEIN 7.1 G/DL (5.7-8.2)
[2024-12-25 10:35] LABS: FREE T3 3.9 PG/ML (2.3-4.2); THYROID PEROXIDASE ANTIBODY 766 U/ML (<60.0); THYROID STIMULATING HORMONE 0.185 uIU/ML (0.55-4.78)
[2024-12-25 10:36] LABS: FREE T4 2.08 NG/DL (0.89-1.76)
[2024-12-25 10:37] LABS: TOTAL 25(OH) VITAMIN D 50.3 NG/ML (20.0-100.0)
[2024-12-25 10:41] LABS: CORTISOL AM 8.7 UG/DL (4.3-22.4)
[2024-12-25 10:45] LABS: THYROGLOBULIN ANTIBODY > 500.0 U/ML (<60.0)
[2024-12-29 02:37] LABS: IgG P18 AB NON-REACTIVE; IgG P23 AB NON-REACTIVE; IgG P28 AB NON-REACTIVE; IgG P30 AB NON-REACTIVE; IgG P39 AB NON-REACTIVE; IgG P41 AB NON-REACTIVE; IgG P45 AB NON-REACTIVE; IgG P58 AB NON-REACTIVE; IgG P66 AB NON-REACTIVE; IgG P93 AB NON-REACTIVE; IgM P23 AB NON-REACTIVE; IgM P39 AB NON-REACTIVE; IgM P41 AB NON-REACTIVE; LYME IgG WB INTERPRETATION NEGATIVE (NEGATIVE); LYME IgM WB INTERPRETATION NEGATIVE (NEGATIVE)
== END ==
LOC: M LAB 08:19
PROVIDERS: ATTEND Nurse Practitioner Pediatrics
DX: N95.8 Other specified menopausal and perimenopausal disorders (principal); M25.50 Pain in unspecified joint; E06.3 Autoimmune thyroiditis; R53.83 Other fatigue

== ENCOUNTER 2025-05-17 08:11 | Day surgery (SDC) | payer OTHER ==
[~2025-05-17] VITALS: Ht 165.1 cm; Wt 80.7 kg
[~2025-05-17 08:11] MED LIST changes: +SERT25TA21; +TIRZ10PE3
[2025-05-17 09:49] VITALS: TEMP 97.4
[2025-05-17] MEDS ORDERED: GLYCOPYRROLATE INJ 0.2 MG/ML 2 ML VIAL As Ordered ONE (09:49)
[2025-05-17 10:15] VITALS: BP 126/60; O2SAT 99
== END 2025-05-17 10:16 | disposition home or self-care (01) ==
LOC: M OPP 08:11
PROVIDERS: ATTEND Internal Medicine Gastroenterology
DX: K57.30 Diverticulosis of large intestine without perforation or abscess without bleeding (principal); K64.8 Other hemorrhoids; R10.32 Left lower quadrant pain; R10.12 Left upper quadrant pain; Z79.899 Other long term (current) drug therapy
CPT/HCPCS: 45378; J1596

== ENCOUNTER → 2025-07-13 | Outpatient (CLI) | payer OTHER ==
[2025-07-13 08:38] LABS: BASO # 0.0 10^3/uL (0.0-0.2); BASO % 0.7 % (0.0-1.0); EOS # 0.1 10^3/uL (0.0-0.5); EOS % 2.1 % (0.0-3.0); LYMPH # 1.7 10^3/uL (1.5-5.0); LYMPH % 39.5 % (24.0-44.0); MONO # 0.3 10^3/uL (0.0-0.8); MONO % 6.5 % (2.0-8.0); NEUTROPHILS # 2.2 10^3/uL (1.5-8.5); NEUTROPHILS % 51.0 % (36.0-66.0); PLATELET COUNT, AUTOMATED 342 10^3/uL (150-450)
[2025-07-13 09:09] LABS: ALT/SGPT 23 U/L (7.0-40); AST/SGOT 20 U/L (<34); C REACTIVE PROTEIN QUANTITATIV < 0.50 MG/DL (<1.0); CALCIUM LEVEL 9.1 MG/DL (8.3-10.6); CARBON DIOXIDE LEVEL 29 MMOL/L (20-31); CHLORIDE LEVEL 104 MMOL/L (98-107); CHOLESTEROL LEVEL 235 MG/DL (<200); CHOLESTEROL RISK RATIO 4.20 (<5); CREATININE FOR GFR 0.92 MG/DL (0.55-1.30); FREE T4 1.64 NG/DL (0.89-1.76); GLOMERULAR FILTRATION RATE 71.3 (>45); LDL CHOLESTEROL 160.1 MG/DL (<100); NON-HDL-C 179.1 MG/DL; POTASSIUM SERUM 4.5 MMOL/L (3.5-5.1); RHEUMATOID FACTOR QUANT 3.6 IU/ML (<14); SODIUM LEVEL 140 MMOL/L (136-145); TRIGLYCERIDES LEVEL 95 MG/DL (<150)
[2025-07-13 09:11] LABS: PROGESTERONE 12.10 NG/ML; TOTAL 25(OH) VITAMIN D 118.5 NG/ML (20.0-100.0)
[2025-07-13 09:13] LABS: THYROID PEROXIDASE ANTIBODY > 1300.0 U/ML (<60.0)
== END ==
LOC: M LAB 07:50
PROVIDERS: ATTEND Nurse Practitioner Pediatrics
DX: M25.50 Pain in unspecified joint (principal); E06.3 Autoimmune thyroiditis; R53.83 Other fatigue; F41.9 Anxiety disorder, unspecified